=== PATIENT | female | born 1990 | race African-American/Black ===

== ENCOUNTER 2023-11-22 09:53 | Emergency (ER) | payer MEDICAID, SELFPAY ==
--- NOTE | ~2023-11-22 | US_ITS ---
EXAMINATION: US , LIMITED CLINICAL INFORMATION: No motion felt COMPARISON: None available. TECHNIQUE: Extremely Limited ultrasound was performed to assess viability FINDINGS: motion was present and a heart rate of 200 bpm was detected. No measurements were performed. No anatomy was assessed. The cervix and placenta appear normal. US/US OB limited IMPRESSION: Limited exam demonstrates a live fetus.
[2023-11-22 10:25] VITALS: BP 114/72; PULSE 78; RESP 16; TEMP 36.9; O2SAT 98; BMI 28.4
[2023-11-22 10:40] LABS: MANUAL DIFF FLAG NO
[2023-11-22 10:42] LABS: Basophils Percent Auto 0.2 % (0-2); Eosinophils Percent Auto 0.2 % (0-4); Hematocrit 35.5 % (37.0-47.0); Hemoglobin 12.1 g/dl (12.0-16.0); Imm Gran Abs Auto 0.04 X10*3/uL (0.00-0.03); Imm Gran Pct Auto 0.4 % (0.0-0.4); Lymphocytes Absolute Auto 1.6 X10*3/uL (1.2-4.9); Lymphocytes Percent Auto 17.4 % (20-40); Mean Corpuscular HGB Conc 34.1 g/dl (31.0-35.0); Mean Corpuscular Hemoglobin 33.1 pg (27.0-33.0); Mean Platelet Volume 10.2 fL (9.4-12.3); Monocytes Absolute Auto 0.7 X10*3/uL (0.1-1.2); Monocytes Percent Auto 7.5 % (2-11); Neutrophils Absolute Auto 6.6 x10*3/uL (2.0-8.3); Neutrophils Percent Auto 74.3 % (45-73); Platelet Count 193 X10*3/uL (160-400); Red Blood Count 3.66 X10*6/uL (4.20-5.50); Red Cell Distribution Width 13.3 % (11.0-16.0)
[2023-11-22 11:01] LABS: Anion Gap 13 (12-20); Blood Urea Nitrogen 6 mg/dL (9-16); Calcium 9.4 mg/dL (8.4-10.2); Carbon Dioxide 22 mmol/L (22-29); Chloride 106 mmol/L (96-108); Estimated Glomerular Filt Rate > 60; Glucose Random 94 mg/dL (60-115); Potassium 3.6 mmol/L (3.3-5.1); Sodium 137 mmol/L (135-145)
[2023-11-22 11:23] LABS: Influenza A PCR NEGATIVE (Negative); Influenza B PCR NEGATIVE (Negative); Resp Syncy Virus RNA Qual PCR NEGATIVE (Negative); SARS COV2 PCR INHOUSE NEGATIVE (Negative)
[2023-11-22 11:28] LABS: HCG Quantitative 24107 mIU/mL
== END 2023-11-22 16:33 | disposition left against medical advice (07) ==
LOC: HO.ED 16:31
PROVIDERS: Emergency Provider Emergency Medicine
DX: M25.519 Pain in unspecified shoulder (principal); M54.6 Pain in thoracic spine; O36.8190 Decreased fetal movements, unspecified trimester, not applicable or unspecified; Z53.21 Procedure and treatment not carried out due to patient leaving prior to being seen by health care provider; Z03.818 Encounter for observation for suspected exposure to other biological agents ruled out
CPT/HCPCS: 0241U; 76815; 80048; 84702; 85025; 99281; 99284